=== PATIENT | male | born 1970 | race American Indian/Alaskan Native ===

== ENCOUNTER 2021-08-30 00:16 | Emergency (ER) | payer SELFPAY ==
[2021-08-30] MEDS ORDERED: TERBUTALINE 1 MG/1 ML INJ SUB-Q PRN (00:59)
[2021-08-30] MEDS ORDERED: ONDANSETRON 4 MG/2 ML INJ IV ONE ×2 (01:00→02:25)
[2021-08-30] MEDS ORDERED: fentaNYL 100 MCG/2 ML INJ IV ONE (01:00)
[2021-08-30] MEDS ORDERED: LIDOCAINE (1%) 10 MG/1 ML VIAL 20 ML MDV INFILTRATI ONE (01:01)
[2021-08-30] MEDS ORDERED: PHENYLEPHRINE 1 MG, SODIUM CHLORIDE P/F VIAL 10 ML 9.9 ML IJ**NOT IV ONE (01:05)
--- NOTE | 2021-08-30 01:08 | Emergency Department Report ---
ED Male HPI - General Chief complaint: Urogenital-Male Stated complaint: ERECTILE TO LONG Time Seen by Provider: 08/30/21 00:58 Source: patient Mode of arrival: Ambulatory Limitations: No Limitations - History of Present Illness Initial comments: 51-year-old obese male presents to the hospital complaining of erection for 12 hours. Patient was seen at a sexual wellness clinic at noon on August 29. He received a shot of a medication in his penis to induce a penile erection and an ultrasound of his penis was performed. Patient has had an erection since without improvement. Pain is rated 10/10 intensity and worse with palpation. No alleviating factors. Patient has been able to urinate since having the erection - Related Data Allergies Allergy/AdvReac Type Severity Reaction Status Date / Time No Known Allergies Allergy Verified 08/30/21 00:31 ED Review of Systems ROS: Stated complaint: ERECTILE TO LONG Other details as noted in HPI Comment: All other systems reviewed and negative ED Physical Exam - General Limitations: No Limitations - Other Other exam information: General: No acute distress Head: Atraumatic Eyes: normal appearance ENT: Moist mucous membranes Neck: Normal appearance, no midline tenderness Chest: Clear to auscultation bilaterally CV: Regular rate and rhythm Abdomen: Soft, normal bowel sounds, nontender, nondistended, no rebound or guarding : Patient has an erection with mild tenderness to palpation to penis Back: Normal inspection Extremity: Normal inspection, full range of motion Neuro: Alert O x 3, no facial asymmetry, speech clear, no gross motor sensory deficit Psych: Appropriate behavior Skin: No rash ED Course Vital Signs 08/30/21 08/30/21 00:21 02:46 Temperature 98.5 F Pulse Rate 101 H Respiratory 18 Rate Blood Pressure 160/92 O2 Sat by Pulse 96 98 Oximetry - Penile Procedure Consent Obtained: verbal consent Time Out Performed: Yes Indication: priapism management Procedural Sedation: No Local Anesthesia Used: Lidocaine 1% without EPI Amount of Anesthesia Used (mls): 5 Priapism Management: aspiration (200ml blood), phenylephrine injection (1 mg) Complications: none Patient Tolerated Procedure: well, no complications ED Medical Decision Making - Medical Decision Making 51-year-old male presents to the hospital priapism greater than 12 hours after receiving a penile injection to induce erection at a sexual wellness clinic. Patient failed terbutaline subcu treatment and required aspiration. 200 mL of dark-colored blood was aspirated from the penis on the left side at the 2 o'clock position after infiltration locally with lidocaine without epi. Once penis was flaccid from the abdomen 1 mg was injected into the corpus cavernosum at the same area and a gauze pressure dressing with Coban was applied to area to prevent hematoma. Patient reports significant improvement in pain. Patient informed to keep Coban on for 6 to 12 hours unless it causes him discomfort then it can be removed Critical Care Time: No Critical care attestation.: If time is entered above; I have spent that time in minutes in the direct care of this critically ill patient, excluding procedure time. ED Disposition Clinical Impression: Drug-induced priapism Disposition: 01 HOME / SELF CARE / HOMELESS Is pt being admited?: No Does the pt Need Aspirin: No Condition: Stable Instructions: Priapism Additional Instructions: Follow-up with your doctor and the urologist. return if symptoms worsen as indicated by your discharge instructions. Referrals: JADA GARCIA [Other] - 3-5 Days RENUKA BARRIENTOS MD [Staff Physician] - 3-5 Days (Urologist) Time of Disposition: 04:55
[2021-08-30] MEDS ORDERED: HYDROmorphone 1 MG/1 ML INJ IV ONE (02:25)
[2021-08-30 04:21] VITALS: BP 128/55
== END 2021-08-30 05:09 | disposition home or self-care (01) ==
LOC: ED 00:16
DX: N48.33 Priapism, drug-induced (principal)
CPT/HCPCS: 54220; 96374; 96375; 99282; J1170; J2370; J2405; J3010; J3105